=== PATIENT | male | born 1985 | race Caucasian/White ===

== ENCOUNTER 2016-10-08 14:29 | Emergency (ER) | payer MEDICAID ==
[2016-10-08 15:58] LABS: CALCIUM 9.2 mg/dL (8.5-10.1); CARBON DIOXIDE 29.3 mmol/L (21-32); CHLORIDE SERUM 103 mmol/L (98-107); CREATININE SERUM 1.1 mg/dL (0.7-1.3); GFR1 > 60 mL/min; GLUCOSE SERUM 104 mg/dL (74-106); SODIUM SERUM 140 mmol/L (136-145)
[2016-10-08 16:07] LABS: PLATELET COUNT 197 x10^3mcL (130-400); RED CELL DISTRIBUTION WIDTH 12.7 % (11.5-14.5)
[2016-10-08 17:38] VITALS: BP 122/69
[2016-10-08 19:35] LABS: BAND NEUTROPHIL 0 % (0-10); MONOCYTE 8 % (0-7); SEGMENTED NEUTROPHILS 59 % (37-75)
== END 2016-10-08 17:38 | disposition home or self-care (01) ==
LOC: ED 14:29
PROVIDERS: Emergency Medicine
DX: R00.2 Palpitations (principal)

== ENCOUNTER 2017-06-13 18:09 | Emergency (ER) | payer MEDICAID ==
[2017-06-13 22:59] VITALS: BP 130/72
== END 2017-06-13 22:59 | disposition home or self-care (01) ==
LOC: ED 18:09
DX: B34.9 Viral infection, unspecified (principal)
CPT/HCPCS: J1885

== ENCOUNTER 2018-07-20 22:05 | Emergency (ER) | payer SELFPAY ==
[~2018-07-20] VITALS: Ht 180.3 cm; Wt 89.4 kg
[2018-07-21 00:29] VITALS: BP 138/68
== END 2018-07-21 00:29 | disposition home or self-care (01) ==
LOC: ED 22:05
DX: B34.9 Viral infection, unspecified (principal)

== ENCOUNTER 2019-07-02 17:44 | Emergency (ER) | payer MEDICAID ==
[~2019-07-02] VITALS: Ht 175.3 cm; Wt 100.2 kg
[2019-07-02 17:51] VITALS: Ht 175.3 cm; Wt 100.2 kg
[2019-07-02 18:44] LABS: BASOPHIL % 0.6 % (0-2); PLATELET COUNT 241 x10^3mcL (130-400); RED CELL DISTRIBUTION WIDTH 13.6 % (11.5-14.5)
[2019-07-02 18:54] LABS: CALCIUM 9.5 mg/dL (8.5-10.1); CARBON DIOXIDE 27.5 mmol/L (21-32); CHLORIDE SERUM 103 mmol/L (98-107); GFR1 > 60 mL/min; GLUCOSE SERUM 96 mg/dL (74-106); SODIUM SERUM 140 mmol/L (136-145)
[2019-07-02 18:58] LABS: ALBUMIN 4.3 g/dL (3.4-5.0); ALKALINE PHOSPHATASE 72 U/L (46-116); ALT/SGPT 37 U/L (16-63); AST/SGOT 11 U/L (15-37); BILIRUBIN TOTAL 0.6 mg/dL (0.20-1.00); LIPASE 145 IU/L (73-393)
[2019-07-02 20:39] VITALS: BP 130/68
== END 2019-07-02 20:39 | disposition home or self-care (01) ==
LOC: ED 17:44
PROVIDERS: Emergency Medicine
DX: K80.20 Calculus of gallbladder without cholecystitis without obstruction (principal)
CPT/HCPCS: 36415; Q0092

== ENCOUNTER 2020-01-12 05:05 | Emergency (ER) | payer SELFPAY ==
[~2020-01-12] VITALS: Ht 182.9 cm; Wt 93.4 kg
[2020-01-12 05:11] VITALS: Ht 182.9 cm; Wt 93.4 kg
[2020-01-12 05:55] LABS: BASOPHIL % 0.6 % (0-2); PLATELET COUNT 190 x10^3mcL (130-400); RED CELL DISTRIBUTION WIDTH 13.2 % (11.5-14.5)
[2020-01-12 06:05] LABS: CALCIUM 8.3 mg/dL (8.5-10.1); CARBON DIOXIDE 27.6 mmol/L (21-32); CHLORIDE SERUM 105 mmol/L (98-107); CREATININE SERUM 1.1 mg/dL (0.7-1.3); GFR1 > 60 mL/min; GLUCOSE SERUM 115 mg/dL (74-106); POTASSIUM SERUM 3.7 mmol/L (3.5-5.1); SODIUM SERUM 139 mmol/L (136-145)
[2020-01-12 06:10] LABS: ALBUMIN 3.7 g/dL (3.4-5.0); ALKALINE PHOSPHATASE 57 U/L (46-116); ALT/SGPT 24 U/L (16-63); AST/SGOT 14 U/L (15-37); BILIRUBIN TOTAL 0.5 mg/dL (0.20-1.00); LIPASE 172 IU/L (73-393); TOTAL PROTEIN, SERUM 6.8 g/dL (6.4-8.2)
[2020-01-12 06:31] VITALS: BP 97/47
== END 2020-01-12 06:31 | disposition home or self-care (01) ==
LOC: ED 05:05
DX: K80.50 Calculus of bile duct without cholangitis or cholecystitis without obstruction (principal)
CPT/HCPCS: J7030